=== PATIENT | female | born 1955 | race Caucasian/White ===

== ENCOUNTER 2022-07-17 06:58 | Observation (INO) ==
--- NOTE | 2022-06-28 11:21 | PAT Medication Instructions ---
Medication Instructions Date of Service June 28, 2022 Home Medications apple cider vinegar 500 mg tablet 500 mg PO QAM ascorbic acid (vitamin C) 500 mg tablet (Vitamin C) 500 mg PO QAM baclofen 10 mg tablet 5 mg PO BID PRN Pain calcium carbonate 600 mg-vitamin D3 5 mcg (200 unit) tablet 1 tab PO QAM cholecalciferol (vitamin D3) 50 mcg (2,000 unit) capsule (Vitamin D3) 50 mcg PO QAM d-mannose 500 mg capsule 500 mg PO BID ferrous sulfate 325 mg (65 mg iron) tablet (iron) 325 mg PO QAM ibuprofen 200 mg tablet (Advil) 400 mg PO Q6H PRN Pain magnesium oxide 420 mg tablet 420 mg PO QAM multivitamin 1 tab PO QAM turmeric 400 mg capsule 500 mg PO QAM ASK your surgeon for instructions ibuprofen 200 mg tablet (Advil) 400 mg PO Q6H PRN Pain STOP taking 2 weeks before surgery (or as soon as possible if surgery is within 2 weeks) apple cider vinegar 500 mg tablet 500 mg PO QAM d-mannose 500 mg capsule 500 mg PO BID turmeric 400 mg capsule 500 mg PO QAM DO NOT take the morning of surgery ascorbic acid (vitamin C) 500 mg tablet (Vitamin C) 500 mg PO QAM baclofen 10 mg tablet 5 mg PO BID PRN Pain calcium carbonate 600 mg-vitamin D3 5 mcg (200 unit) tablet 1 tab PO QAM cholecalciferol (vitamin D3) 50 mcg (2,000 unit) capsule (Vitamin D3) 50 mcg PO QAM ferrous sulfate 325 mg (65 mg iron) tablet (iron) 325 mg PO QAM magnesium oxide 420 mg tablet 420 mg PO QAM multivitamin 1 tab PO QAM Take evening before surgery baclofen 10 mg tablet 5 mg PO BID PRN Pain (if needed) Other Notes If you have any questions please call us at [phone] or [phone] or [phone] or [phone]
--- NOTE | 2022-07-02 09:13 | History & Physical Report ---
Date of Service July 02, 2022 date of surgery: 07/17/22 Procedure: Right Total Knee Arthroplasty Surgeon: Guy Sharma Assessment & Plan (1) Arthritis of right knee: Plan: Risks and benefits of procedure discussed in detail today, patient would like to proceed with a right total knee replacement at [facility] as scheduled. will obtain medical clearance from Dr Oropeza prior to surgery as well as obtain PATs at [facility]. Will place on ASA 81mg po bid x 1 month post op, f/u 2 weeks post op for routine post-operative care and x-ray, sooner if having any problems. will make arrangements for HHPT at the time of discharge. At this point in time, has failed conservative measures and would like to proceed with surgical intervention. The risks and benefits have been discussed including, but not limited to, risk of infection, nerve injury, stiffness, loss of motion, failure to improve, etc. Reasonable outcomes and options of treatment were discussed. An explanation of appropriate alternatives to the procedure that may be advantageous were discussed and their risks and benefits, as well as the risks and benefits of not proceeding with treatment. I offered to answer any additional inquiries concerning the treatment involved. All the patient's questions were answered. The patient is agreeable, understanding of the treatment plan and alternatives, and wishes to proceed with the treatment plan. History of Present Illness Chief Complaint: Right knee pain Primary Care Provider: Jaclyn Oropeza Maricruz presents today for preop evaluation prior to right total knee replacement scheduled for July 17. She has complaints of pain decreased range of motion and intermittent swelling. Rates her current pain as a 6 out of 10. She is tried and failed prior viscosupplementation as well as corticosteroid injections including Zilretta without relief. She is tried oral anti-inflamm atories and Tylenol at this point time is failed conservative measures like to proceed with a right total knee replacement Allergies Allergy/AdvReac Type Severity Reaction Status Date / Time Penicillins Allergy Intermediate Hives Verified 06/28/22 09:45 Fish Containing Products Allergy Mild Rash Verified 06/28/22 09:46 lactase [From Dairy Aid] Allergy Mild Rash Verified 06/28/22 09:46 Home Medications Medication Instructions Recorded Confirmed Type apple cider vinegar 500 mg tablet 500 mg PO QAM 06/28/22 06/28/22 History ascorbic acid (vitamin C) 500 mg 500 mg PO QAM 06/28/22 06/28/22 History tablet (Vitamin C) baclofen 10 mg tablet 5 mg PO BID PRN Pain 06/28/22 06/28/22 History calcium carbonate 600 mg-vitamin 1 tab PO QAM 06/28/22 06/28/22 History D3 5 mcg (200 unit) tablet cholecalciferol (vitamin D3) 50 50 mcg PO QAM 06/28/22 06/28/22 History mcg (2,000 unit) capsule (Vitamin D3) d-mannose 500 mg capsule 500 mg PO BID 06/28/22 06/28/22 History ferrous sulfate 325 mg (65 mg 325 mg PO QAM 06/28/22 06/28/22 History iron) tablet (iron) ibuprofen 200 mg tablet (Advil) 400 mg PO Q6H PRN Pain 06/28/22 06/28/22 History magnesium oxide 420 mg tablet 420 mg PO QAM 06/28/22 06/28/22 History multivitamin 1 tab PO QAM 06/28/22 06/28/22 History turmeric 400 mg capsule 500 mg PO QAM 06/28/22 06/28/22 History Past Med/Surg History Medical History Eczema Elevated BP without diagnosis of hypertension RECENT ISSUE>MONITORING BP AT HOME> RECENTLY IN 130-140S SYSTOLICALLY Elevated cholesterol Diet controlled GERD (gastroesophageal reflux disease) Well controlled and stable Iron deficiency anemia Ocular migraine Osteoarthritis Schatzki's ring STRETCHING IN PAST- NO CURRENT ISSUES Scoliosis Urinary retention SELF CATH TID>VOIDS "VERY LITTLE"> PRESUMED NEUROGENIC BLADDER UTI (urinary tract infection) ON MACROBID - STARTED 06/29/22- STILL HAVE MILD SYMPTOMS Surgical History Fusion of spine LUMBAR SPINE H/O wrist surgery RT>NO HARDWARE History of arthroscopy LEFT KNEE History of bladder surgery URETERS REPAIRED AND BENIGN OVARIAN TUMOR REMOVED (OPEN PROCEDURE)>AT AGE 14 History of carpal tunnel release RT/LEFT History of section X 2 History of cholecystectomy History of colonoscopy History of cystoscopy MULTIPLE X'S History of esophagogastroduodenoscopy (EGD) History of tooth extraction Social History Smoking Status: Never smoker Second Hand Exposure: Yes ( A CHILD); Hx Alcohol Use: Yes Preferred Language: Omani [employer] C[employer] Hel[employer] Required: No Beliefs That Will Affect Care: None Current Living Situation: Alone Feels Safe at Home: Yes Assistive Devices: Glasses Review of Systems Review of Systems: All systems reviewed & are unremarkable except as noted in HPI & below Constitutional: no fever, no chills and no sweats Respiratory: no cough and no dyspnea Cardiovascular: no chest pain, no dyspnea and no orthopnea Gastrointestinal: no abdominal pain, no nausea and no vomiting Musculoskeletal: as per Subjective / HPI Physical Exam Physical Exam: HT: 5ft 2in WT: 81.6kg Constitutional: WD/WN, vitals as above no acute distress Respiratory: normal respiratory effort, lungs clear to auscultation no respiratory distress, no labored breathing and does not use accessory muscles Cardiovascular: RRR, no murmur, no edema Gastrointestinal (Abdomen): normal bowel sounds, soft, nontender, no hepatosplenomegaly Musculoskeletal: Knee: + knee abnormal to inspection (RIGHT KNEE: ), + effusion (+1 effusion), + limited ROM of knee (ROM 0/3/110), + knee ROM with crepitation, + joint line tenderness (medial joint line) and + Glenna's sign positive; no deformity, no skin erythema, no ecchymosis, no valgus laxity, no varus laxity, anterior drawer test negative, Trisha's sign negative and pivot shift test negative Results & Data Results & Data ([facility]) Diagnostic Findings Right Knee X-ray: Right knee series showing advanced degenerative changes to the right knee, narrowing of the medial compartment and patello-femoral joint with patellar spurring noted, findings showing joint space narrowing of the medial compartment and patello-femoral joint, osteophyte formation and subchondral sclerosis noted. overall varus alignment. no acute bony pathology noted.
--- NOTE | 2022-07-02 10:21 | Anesthesiology Consultation ---
Date of Service July 02, 2022 Assessment & Plan (1) Encounter for pre-operative examination: Chart Review Chart Review: Acceptable Risk for Surgery (pending PCP clearance, response to abnormal CXR and cardio clearance (07/11/22)) and Patient seen in Pre Admission Testing -Awaiting PCP clearance (seen already)- please send optimization form re: preop CXR (along with other preop testing)- will need a response - Awaiting cardio clearance 07/11/22 -Pt is not an ideal Outpatient Joint candidate Per PAT appt on 07/02/22, patient denies any recent travel or large group activities. Pt is vaccinated for Covid. Will leave to surgeon's discretion if preop Covid testing needed. Educated on importance of using Covid precautions one week prior to surgery Teaching & Discussion Pre-Anesthesia Teaching/Discussion Notes: Instructed NPO after midnight before surgery,except medications with 15 cc of water. Medication instructions provided according to the PAT guidelines. History Surgery Operation Date: 07/17/22 07:15 Proposed Procedures p Right Total Knee Arthroplasty - Guy Sharma DO Height/Weight Height: 5 ft 2 in Weight: 82.4 kg Allergies Allergy/AdvReac Type Severity Reaction Status Date / Time Penicillins Allergy Intermediate Hives Verified 06/28/22 09:45 Fish Containing Products Allergy Mild Rash Verified 06/28/22 09:46 lactase [From Dairy Aid] Allergy Mild Rash Verified 06/28/22 09:46 Medications Home Medications Medication Instructions Recorded Confirmed Last Taken apple cider vinegar 500 mg tablet 500 mg PO QAM 06/28/22 06/28/22 Unknown ascorbic acid (vitamin C) 500 mg 500 mg PO QAM 06/28/22 06/28/22 Unknown tablet (Vitamin C) baclofen 10 mg tablet 5 mg PO BID PRN Pain 06/28/22 06/28/22 Unknown calcium carbonate 600 mg-vitamin 1 tab PO QAM 06/28/22 06/28/22 Unknown D3 5 mcg (200 unit) tablet cholecalciferol (vitamin D3) 50 50 mcg PO QAM 06/28/22 06/28/22 Unknown mcg (2,000 unit) capsule (Vitamin D3) d-mannose 500 mg capsule 500 mg PO BID 06/28/22 06/28/22 Unknown ferrous sulfate 325 mg (65 mg 325 mg PO QAM 06/28/22 06/28/22 Unknown iron) tablet (iron) ibuprofen 200 mg tablet (Advil) 400 mg PO Q6H PRN Pain 06/28/22 06/28/22 Unknown magnesium oxide 420 mg tablet 420 mg PO QAM 06/28/22 06/28/22 Unknown multivitamin 1 tab PO QAM 06/28/22 06/28/22 Unknown turmeric 400 mg capsule 500 mg PO QAM 06/28/22 06/28/22 Unknown Past Medical History Medical History (Updated 07/03/22 @ 08:59 by Cherry Chopra PA-C) Eczema Elevated BP without diagnosis of hypertension RECENT ISSUE>MONITORING BP AT HOME> RECENTLY IN 130-140S SYSTOLICALLY Elevated cholesterol Diet controlled GERD (gastroesophageal reflux disease) Well controlled and stable Iron deficiency anemia Ocular migraine Osteoarthritis Prediabetes Presumed- Hgb A1C 07/02/22- was 5.9 Schatzki's ring STRETCHING IN PAST- RARE ISSUES- USUALLY WITH BEEF Scoliosis Urinary retention SELF CATH TID>VOIDS "VERY LITTLE"> PRESUMED NEUROGENIC BLADDER UTI (urinary tract infection) ON MACROBID - STARTED 06/29/22- STILL HAS MILD SYMPTOMS - FOLLOWING WITH UROLOGY AND PCP Exercise / Class Metabolic Activity III < 4 Walking/Shop/Light housework (one flight of stairs - no chest pain, mild SOB ) Past Surgical History Surgical History Fusion of spine LUMBAR SPINE H/O wrist surgery RT>NO HARDWARE History of arthroscopy LEFT KNEE History of bladder surgery URETERS REPAIRED AND BENIGN OVARIAN TUMOR REMOVED (OPEN PROCEDURE)>AT AGE 14 History of carpal tunnel release RT/LEFT History of section X 2 History of cholecystectomy History of colonoscopy History of cystoscopy MULTIPLE X'S History of esophagogastroduodenoscopy (EGD) History of tooth extraction Past Anesthesia History No Hx of Anesthesia Complications and No Family Hx of Anesthesia Complications History of PONV History of PONV (remote hx of PONV at age 14 years of age - no subsequent issues ) and Hx of Motion Sickness (minimal ) Social History Smoking Status: Never smoker Hx Alcohol Use: Yes alcohol intake frequency: holidays/special occasions only substance use type: does not use Review of Systems Hx of snoring- hx of sleep study- positional apnea- did not recommend device Hx of blood transfusion s/p lumbar surgery Patient denies chest pain, shortness of breath at rest, cough, wheezing, palpitations. No hx of seizures, stroke, DC. No hx of blood clots Physical Exam Vital Signs VITALS BP 144/77 P 71 TEMP 97.4 SP02 97% RESP 16 Constitutional no acute distress ENMT Mouth: no TMJ clicking Thyromental Distance: > or= 3.5 Finger Breadths (3.5) Mallampati Class: III Caps to side teeth and molars Permanent implants to molars Neck neck extension not limited Respiratory normal respiratory effort; no respiratory distress Auscultation: lungs clear to auscultation bilaterally; no wheezes Cardiovascular Rate/Rhythm: regular rate and regular rhythm Heart Sounds: no murmur Vessels: no carotid bruit Musculoskeletal Spine: no pain with cervical ROM Extremities: extremities normal to inspection Psychiatric Orientation: alert Lab Results Anesthesia Preop Results Results Anesthesia Widget: WBC 6.88 K/ul (4.8-10.8) 07/02/22 Hgb 12.2 g/dl (12.0-16.0) 07/02/22 Hct 38.1 % (37.0-47.0) 07/02/22 Plt 298 K/uL (130-400) 07/02/22 Na 139 mmol/L (136-145) 07/02/22 K 3.8 mmol/L (3.5-5.1) 07/02/22 Cl 106 mmol/L (98-107) 07/02/22 CO2 28 mmol/L (21-32) 07/02/22 BUN 16 mg/dl (6-23) 07/02/22 Creat 0.80 mg/dl (0.6-1.2) 07/02/22 Glucose Level 100 mg/dl (70-99(Fasting)) H 07/02/22 PT 10.6 Seconds (9.0-12.0) 07/02/22 PTT 24.7 Seconds (21.0-31.0) 07/02/22 INR 1.0 (0.9-1.1) 07/02/22 HA1c 5.9 % (4.5-5.6) H 07/02/22 Urine Color Yellow 07/02/22 Urine Appearance Clear (Clear) 07/02/22 Urine pH 5.5 (4.5-7.5) 07/02/22 Urine Specific [place] 1.014 (1.000-1.030) 07/02/22 Urine Protein Negative (Negative) 07/02/22 Urine Glucose (UA) Negative (Negative) 07/02/22 Urine Ketones Negative (Negative) 07/02/22 Urine Blood Negative (Negative) 07/02/22 Urine Nitrite Positive (Negative) A 07/02/22 Urine Bilirubin Negative (Negative) 07/02/22 Urine Urobilinogen Negative (Negative) 07/02/22 Urine Leukocyte Esterase Trace (Negative) H 07/02/22 Urine WBC (Auto) 1-5 /hpf (0-5) 07/02/22 Urine RBC (Auto) 0-4 /hpf (0-4) 07/02/22 Urine Hyaline Casts (Auto) 1-5 /lpf (0-5) 07/02/22 Urine Epithelial Cells (Auto) >30 /lpf (0-5) H 07/02/22 Urine Bacteria (Auto) Negative (Negative) 07/02/22 Blood Type AB Positive 07/02/22 Antibody Screen NEGATIVE 07/02/22 Testing Electrocardiogram Date: 07/02/22 Findings: + NSR @ (71bpm ) Normal EKG per cardio. Chest X-Ray Date: 07/02/22 FINDINGS: No pneumothorax. There is a trace right pleural effusion. There is a moderate hiatus hernia. The heart is mildly enlarged. There is mild central pulmonary vascular congestion without overt edema. Prior cholecystectomy. Bibasilar linear densities are noted. IMPRESSION: 1. Cardiomegaly with mild pulmonary vascular congestion and a trace right pleural effusion. 2. Bibasilar densities are nonspecific but may represent atelectasis. A pneumonia could also have a similar appearance in the appropriate clinical setting. 3. Moderate hiatus hernia. Stress Test Date: 12/11/18 Type: exercise Unable to progress beyond Harvey Stage 1 due to early elevation in heart rate and dyspnea. Only minor ST depression noted in inferior leads that is likely rate related. Poor to fair exercise tolerance. MPHR 120%. 4.64 METS achieved. COVID-19 Risk Screen Screening Information COVID-19 Screen Date: 07/02/22 Exposure 21 Days Family/Household +COVID Last 21 Days: No Exposure 10 Days Any COVID Exposure Last 10 Days: No Symptoms Last 10 Days Experienced COVID Sx Last 10 Days: No + COVID 0-90 Days COVID + in Last 0-90 Days: No Risk Plan COVID Risk Plan: No Risk Identified Patient Education COVID Preop Screening Education Complete: Yes
[~2022-07-17 06:58] MED LIST: ACETAMINOPHEN 500 MG TAB PO SCH; ALLERGY Noted to ORDERED Medication SCH; BUPIVACAINE 0.5 % 5 MG/1 ML PF 10ML VIAL ONE; CeleBREX 200 MG CAP PO SCH; FAMOTIDINE 20 MG TAB PO SCH; GABAPENTIN 300 MG CAP PO SCH; LR 500ML BOLUS, THEN 15ML/HR IV SCH; METOCLOPRAMIDE HCL 10 MG TABLET PO SCH; ROPIVACAINE 0.5% 5 MG/ML 30 ML VIAL ONE; ROPIVACAINE 0.5% HCL/PF 150 MG, BUPIVACAINE 0.75% MPF 20 ML, EPINEPHrine 30MG/30ML (OR ... INFIL SCH; TRANEXAMIC ACID 1,000 MG **IV Intra-op IV SCH; TRANEXAMIC ACID 1,000 MG **IV Pre-op IV SCH; dexAMETHasone 4 MG TAB PO SCH
[2022-07-17] MEDS ORDERED: fentaNYL citrate PF 100 MCG/2 ML VIAL ONE (07:00)
[2022-07-17] MEDS ORDERED: PROPOFOL IV EMULSION 10 MG/ML 20 ML VIAL IV ONE ×3 (07:00→11:56)
[2022-07-17] MEDS ORDERED: MIDAZOLAM HCL 1 MG/ML 2ML VIAL ONE (07:00)
[2022-07-17] MEDS ORDERED: ONDANSETRON INJ 2 MG/ML 2 ML VIAL ONE (07:00)
--- NOTE | 2022-07-17 07:30 | History & Physical Bridge Note ---
Date of Service July 17, 2022 History & Physical Bridge Note I have examined the patient, reviewed the History & Physical and in the interval since the performance of the History & Physical I have noted the following changes of clinical significance: no changes noted
[2022-07-17] MEDS ORDERED: ONDANSETRON INJ 2 MG/ML 2 ML VIAL IV PRN ×2 (09:22→13:42)
[2022-07-17] MEDS ORDERED: ATROPINE SULFATE 0.1 MG/ML 10ML SYR IV PRN (09:22)
[2022-07-17] MEDS ORDERED: ePHEDrine sulfate 50 MG/ML AMP IV PRN (09:22)
[2022-07-17] MEDS ORDERED: fentaNYL citrate PF 100 MCG/2 ML VIAL IV PRN (09:22)
[2022-07-17] MEDS ORDERED: HYDROmorphone INJ 2 MG/ML SYR/VIAL IV PRN (09:22)
[2022-07-17] MEDS ORDERED: ORTHO JOINT ANESTHETIC ONE (09:24)
[2022-07-17] MEDS ORDERED: ceFAZolin 2000MG 2,000 MG/15 ML SYR IV ONE (10:44)
--- NOTE | 2022-07-17 11:50 | Operative Report ---
Post Operative Report Pre & Post Diagnosis Operation Date: 07/17/22 09:35 Pre-Op Diagnosis: Right Knee Osteoarthritis Post-Op Diagnosis: Right Knee Osteoarthritis I identified the patient and participated in the time-out.: Yes Procedure Operation Date: 07/17/22 09:35 Actual Procedures p Right Total Knee Arthroplasty(Right utilizing [employer] journey 2 patient matched total knee arthroplasty size femur 3 tibia 2 poly 13 mm patella 26 round) - Guy Sharma DO Surgeon Guy Sharma DO Habilitative Interventionist THUY Kim Estimated Blood Loss 5 Findings Consistent with Post-Op Diagnosis Patient presents with severe end-stage tricompartmental degenerative joint disease right knee varus [id number] marginal osteophyte subchondral sclerosis with moderate to large effusion Specimens Bone card Drains Medium bore Hemovac Anesthesia Type MAC Spinal Regional Complications none Disposition Accompanied Patient To Recovery: No Disposition: Recovery Room Indications Patient presents with severe end-stage DJD right knee failed attempted conservative management including physical therapy anti-inflammatories relative rest activity modification corticosteroid injection viscosupplementation the above intraoperative findings were noted Description of Procedure After proper prepping and draping of the Right lower extremity anterior midline incision was made over the region of the extensor extensor mechanism after meticulous hemostasis was obtained and maintained in subcutaneous tissues a medial parapatellar incision was made The patella was subluxed lateralward the medial lateral gutter were cleaned from any hypertrophic synovitis and scar tissue of the distal femoral block was placed and the distal femoral osteotomy cut was made subsequently the chamfers anterior and posterior osteotomy cuts were made utilizing the 4-in-1 block the tibia was subsequently subluxed anteriorward medial and ateral meniscal remnants were excised in their entirety remnants of the anterior and posterior cruciate ligaments were excised in their entirety excellent exposure of the proximal tibia was obtained the tibial osteotomy guide was placed on the proximal tibial osteotomy cut was made once again the knee was irrigated with copious amounts of sterile saline solution the patella was subsequently everted lateralward thickened scar tissue around the patella was removed the patella was subsequently cut utilizing a freehand technique and was drilled prepared for final preparation and placement of patella socially flexion-extension gaps were checked and the equal and symmetric trials were placed to the appropriate femoral and tibial trials with poly-spacer being placed for equal flexion and extension gaps and full range of motion including extension to 0 and flexion to 140 the trial components after having been taken to recovery range of motion was subsequently removed meticulous hem ostasis was obtained and maintained subsequently a knee block injection of joint cocktail including ropivacaine 0.5% 150 mg. Bupivacaine 0.5% epinephrine 1- 200,030 mL's toradol 30 mg dexamethasone 4 mg ketamine 10 mg clonidine 100 micrograms normal saline solution 30 mg was infiltrated into the soft tissues of the posterior knee medial lateral gutters and periosteal synovium special attention was paid to protect neurovascular structures at all times subsequently trial components having been removed the knee was irrigated with sterile saline solution. debris was removed the proximal tibia was subsequently prepared and was made ready for the placement of the tibial component tibial component was also cemented and tamped into position the femoral component was subsequently placed and cemented in the position the patellar component was subsequently cemented in position because hemostasis once again obtained and maintained wound having been thoroughly irrigated with debridement and debridement lavage was performed as well as a medial parapatellar incision closed with #1 Vicryl in interrupted fashion subcutaneous was closed with #2 Vicryl skin was closed with skin clips. PA-C was necessary for prepping and drapping as well as wound closure of deep fascia Sub cutaneous tissue and skin and was necessary for the case. A sterile compressive dressing was placed patient was taken to recovery in stable condition of report dictated by Zachary I attest to the content of the Intraoperative Record and any orders documented therein. Any exceptions are noted below.Due to the complex nature of the procedure, the entire surgery was performed with the operational assistance of THUY Kim. The call center assistant, under direct supervision, was involved in the actual performance of all aspects of the surgical procedure including hemostasis, tissue retraction and incision, instrument management, patient positioning, and wound closure. I attest to the content of the Intraoperative Record and any orders documented therein. Any exceptions are noted below.
--- NOTE | 2022-07-17 12:52 | XRay Report ---
TWO VIEWS RIGHT KNEE CLINICAL HISTORY: Postoperative examination. FINDINGS: AP and crosstable lateral portable views of the right knee are obtained. A right knee arthr oplasty is in near anatomic alignment. There has been undersurface remodeling of the patella. No acut e fracture is seen. There are expected postoperative changes around the knee including a surgical alan in, soft tissue edema, and subcutaneous gas. IMPRESSION: Expected postoperative change status post right knee arthroplasty. No acute fracture is s een. ACT 112: Negative or not required by law. Electronically signed by: Christopher Quesada M.D. 07/17/2022 12:51 PM
[2022-07-17] MEDS ORDERED: MAGNESIUM HYDROXIDE SUSP 30 ML UDC PO PRN (13:42)
[2022-07-17] MEDS ORDERED: oxyCODONE HCL IR 5 MG TAB (IMMEDIATE RELEASE) PO PRN (13:42)
[2022-07-17] MEDS ORDERED: bisacodyL 10 MG SUPP PR PRN (13:42)
[2022-07-17] MEDS ORDERED: BACLOFEN 10 MG TAB PO PRN (13:42)
[2022-07-17] MEDS ORDERED: METOCLOPRAMIDE HCL INJ 5 MG/ML 2 ML VIAL IV PRN (13:42)
[2022-07-17] MEDS ORDERED: diphenhydrAMINE Capsule 25 MG CAP PO PRN (13:42)
[2022-07-17] MEDS ORDERED: NALOXONE HCL 0.4 MG/1 ML VIAL/CARP IV PRN (13:42)
[2022-07-17] MEDS ORDERED: HYDROmorphone INJ 1 MG/ML SYRINGE IV PRN (13:42)
--- NOTE | 2022-07-17 14:03 | Anesthesiology Progress Note ---
Date of Service July 17, 2022 Anesthesia Post Procedure Vital Signs Vital Signs: Temp Pulse Pulse Resp BP Pulse Ox O2 Del Method 07/17/22 14:01 36.9 C 76 16 111/68 96 Room Air 07/17/22 13:42 36.8 C 74 16 98/66 L 94 Room Air 07/17/22 12:50 36.7 C 80 14 111/70 96 Room Air 07/17/22 12:40 36.9 C 79 13 95/55 L 98 Room Air 07/17/22 12:30 36.9 C 87 19 110/68 99 Oxymask 07/17/22 12:22 36.9 C 89 17 107/67 99 Oxymask 07/17/22 07:22 36.5 C 86 18 148/82 H 97 Room Air O2 Flow Rate 07/17/22 14:01 07/17/22 13:42 07/17/22 12:50 07/17/22 12:40 07/17/22 12:30 6 07/17/22 12:22 6 07/17/22 07:22 Transfer of Care Handoff Completed per policy Notes Mental Status: alert / awake / arousable and participated in evaluation Patient Amnestic to Procedure: Yes Nausea / Vomiting: adequately controlled Pain: adequately controlled Airway Patency, RR, SpO2: stable & adequate BP & HR: stable & adequate Hydration State: stable & adequate Neuraxial Anesthesia: was administered and sensory block is resolving Anesthetic Complications: no major complications apparent and Pt Satisfied with anesthetic care
[2022-07-17] MEDS: CLINDAMYCIN/D5W 600 MG/50 ML BAG IV SCH (18:22)
[2022-07-17] MEDS: SODIUM CHLORIDE 0.9% 1000ML 1,000 ML IV SCH (18:23)
[2022-07-17] MEDS: ACETAMINOPHEN 500 MG TAB PO SCH (18:23)
[2022-07-17] MEDS: KETOROLAC TROMETHAMINE 15 MG/ML VIAL IV SCH (18:23)
[2022-07-17] MEDS ORDERED: SENNA 8.6 MG TAB PO SCH (21:00)
[2022-07-17] MEDS: ASPIRIN 81 MG ECTAB PO SCH (21:30)
[2022-07-17] MEDS: DOCUSATE SODIUM 100 MG CAP PO SCH (21:31)
[2022-07-18] MEDS: KETOROLAC TROMETHAMINE 15 MG/ML VIAL IV SCH ×3 (00:26→12:28)
[2022-07-18] MEDS: ACETAMINOPHEN 500 MG TAB PO SCH ×2 (00:27→07:40)
[2022-07-18] MEDS: CLINDAMYCIN/D5W 600 MG/50 ML BAG IV SCH (01:54)
[2022-07-18] MEDS: SODIUM CHLORIDE 0.9% 1000ML 1,000 ML IV SCH (04:11)
[2022-07-18 08:11] LABS: Hematocrit (blood only) 34.1 % (37.0-47.0); Hemoglobin 10.8 g/dl (12.0-16.0); Mean Corpuscular Hemoglobin 26.6 pg (25.0-34.0); Mean Corpuscular Hgb Conc 31.7 g/dL (32.0-36.0); Mean Platelet Volume 11.1 fL (9.4-12.4); Platelet Count 278 K/uL (130-400); RDW Coefficient of Variation 15.5 % (11.5-14.5); RDW Standard Deviation 47.8 fL (36.4-46.3); Red Blood Count 4.06 M/uL (4.20-5.40); White Blood Count 12.03 K/ul (4.8-10.8)
[2022-07-18 08:25] VITALS: BP 130/71; TEMP 97.7; O2SAT 100
[2022-07-18 08:29] LABS: Calcium 8.7 mg/dl (8.5-10.1); Est GFR (African American) 99.5 ml/min; Est GFR (Non-African American) 85.8 ml/min; Potassium 4.2 mmol/L (3.5-5.1)
[2022-07-18] MEDS: ASPIRIN 81 MG ECTAB PO SCH (08:36)
[2022-07-18] MEDS: DOCUSATE SODIUM 100 MG CAP PO SCH (08:36)
[2022-07-18] MEDS ORDERED: MULTIVITAMIN TAB PO SCH (09:00)
[2022-07-18] MEDS ORDERED: CALCIUM 600MG + VIT D 400 IU TAB PO SCH (09:00)
[2022-07-18] MEDS ORDERED: MAGNESIUM OXIDE 400 MG TAB PO SCH (09:00)
[2022-07-18] MEDS ORDERED: CHOLECALCIFEROL 1,000 UNITS 25 MCG TAB PO SCH (09:00)
[2022-07-18] MEDS ORDERED: FERROUS SULFATE 325 MG TAB PO SCH (09:00)
[2022-07-18] MEDS ORDERED: ASCORBIC ACID 500 MG TAB PO SCH (09:00)
--- NOTE | 2022-07-18 10:38 | Orthopedic Progress Note ---
Date of Service July 18, 2022 Assessment & Plan (1) History of total right knee replacement (TKR): Plan: Pt is POD #1 s/p Right TKA -PT/OT -Pain regime as written -DVT ppx with TEDS/SCDS/ASA BID -Pt to have drain removed prior to d/c and she is stable from an orthopedic standpoint for discharge today. Admission and Anticipated Discharge Date Admission Date: July 17, 2022 Subjective Pt is POD #1 s/p Right TKA -Pt doing well this morning, has no acute complaints -States she is having minimal pain but pain is controlled with medications -Denies CP, SOB, abdominal pain, fevers or chills Review of Systems Review of Systems: All systems reviewed & are unremarkable except as noted in Subjective Physical Exam Physical Exam: RLE with dressing and drain in place, area is c/d/i, drain with minimal output appreciated. Calf is soft and nontender with negative Loretta sign. Able to wiggle toes without issue, good ROM of R ankle, distal perfusion and sensation grossly intact. Results & Data Vital Signs (Past 12 Hours) Vital Signs Temp Pulse Pulse Resp BP Pulse Ox O2 Del Method 07/18/22 08:24 36.5 C 57 L 18 130/71 100 Room Air 07/18/22 04:00 36.6 C 58 L 16 125/79 97 Room Air 07/18/22 00:19 36.5 C 69 18 110/65 97 Room Air Laboratory Results Laboratory Results WBC 12.03 K/ul (4.8-10.8) H 07/18/22 07:40 RBC 4.06 M/uL (4.20-5.40) L 07/18/22 07:40 Hgb 10.8 g/dl (12.0-16.0) L 07/18/22 07:40 Hct 34.1 % (37.0-47.0) L 07/18/22 07:40 MCV 84.0 fL (80.0-100.0) 07/18/22 07:40 MCH 26.6 pg (25.0-34.0) 07/18/22 07:40 MCHC 31.7 g/dL (32.0-36.0) L 07/18/22 07:40 RDW Std Deviation 47.8 fL (36.4-46.3) H 07/18/22 07:40 RDW Coeff of Mauricio 15.5 % (11.5-14.5) H 07/18/22 07:40 Plt Count 278 K/uL (130-400) 07/18/22 07:40 MPV 11.1 fL (9.4-12.4) 07/18/22 07:40 Sodium 139 mmol/L (136-145) 07/18/22 07:40 Potassium 4.2 mmol/L (3.5-5.1) 07/18/22 07:40 Chloride 109 mmol/L (98-107) H 07/18/22 07:40 Carbon Dioxide 25 mmol/L (21-32) 07/18/22 07:40 Anion Gap 5 (3-11) 07/18/22 07:40 BUN 19 mg/dl (6-23) 07/18/22 07:40 Creatinine 0.73 mg/dl (0.6-1.2) 07/18/22 07:40 Est Cr Clr Drug Dosing 75.0 ml/min 07/18/22 07:40 Est GFR ( Amer) 99.5 ml/min 07/18/22 07:40 Est GFR (Non-Af Amer) 85.8 ml/min 07/18/22 07:40 BUN/Creatinine Ratio 26.0 (10-20) H 07/18/22 07:40 Glucose 126 mg/dl (70-99(Fasting)) H 07/18/22 07:40 POC Glucose 137 mg/dl (70-99) H 07/17/22 07:20 Calcium 8.7 mg/dl (8.5-10.1) 07/18/22 07:40 SARS-CoV-2, RNA, NAAT NEGATIVE (NEGATIVE) 07/17/22 Unknown Impressions Knee X-Ray 07/17/22 12:25 TWO VIEWS RIGHT KNEE CLINICAL HISTORY: Postoperative examination. FINDINGS: AP and crosstable lateral portable views of the right knee are obtained. A right knee arthroplasty is in near anatomic alignment. There has been undersurface remodeling of the patella. No acute fracture is seen. There are expected postoperative changes around the knee including a surgical drain, soft tissue edema, and subcutaneous gas. IMPRESSION: Expected postoperative change status post right knee arthroplasty. No acute fracture is seen. ACT 112: Negative or not required by law. Electronically signed by: Christopher Quesada M.D. 07/17/2022 12:51 PM
[2022-07-18 12:54] VITALS: PULSE 69
[2022-07-18] MEDS ORDERED: CeleBREX 200 MG CAP PO SCH (21:00)
--- NOTE | 2022-07-19 07:53 | Discharge Summary ---
Date of Service date of discharge: July 18, 2022 date of admission: 07/17/22 Admission HPI Per Admitting Provider Maricruz presents today for preop evaluation prior to right total knee replacement scheduled for July 17. She has complaints of pain decreased range of motion and intermittent swelling. Rates her current pain as a 6 out of 10. She is tried and failed prior viscosupplementation as well as corticosteroid injections including Zilretta without relief. She is tried oral anti- inflammatories and Tylenol at this point time is failed conservative measures like to proceed with a right total knee replacement Principal Diagnosis right knee arthritis Discharge Exam Musculoskeletal right knee: NVDI, calf SNT, negative chanda sign. DP palpable, able to wiggle toes/ankle movement without difficulty. CE dressing clean dry and intact. expected post-operative bruising noted. Discharge Data Allergies Allergy/AdvReac Type Severity Reaction Status Date / Time Penicillins Allergy Intermediate Hives Verified 07/17/22 07:17 Fish Containing Products Allergy Mild Rash Verified 07/17/22 07:17 lactase [From Dairy Aid] Allergy Mild Rash Verified 07/17/22 07:17 Procedures Performed Operation Date: 07/17/22 09:35 Actual Procedures p Right Total Knee Arthroplasty(Right) - Guy Sharma DO Ordered Studies 07/17/22 05:00 US - OR guided needle placemen Routine Hospital Course (1) History of total right knee replacement (TKR): Pt is POD #1 s/p Right TKA -PT/OT -Pain regime as written -DVT ppx with TEDS/SCDS/ASA BID -Pt to have drain removed prior to d/c and she is stable from an orthopedic standpoint for discharge today. Total Time Total Time Spent Total Time Spent (In Minutes): 20 Discharge Plan Discharge Items Patient Disposition: Home - Home Health Services Reason For Visit: Right Knee Osteoarthritis Discharge Diagnosis: right total knee replacement Activity: Per Instructions section Weightbearing: Right weightbearing Weightbearing Comment: WBAT with walker Non-emergency contact: Surgeon Call non-emergency contact if: you have any medication questions, your temperature is above 101, your wound has increased redness, your wound has increased drainage and your wound pain has increased Follow-up/Referrals: Jaclyn Oropeza DO [Primary Care Provider] - Diet: Regular Addtl Attending Provider Instructions: ACTIVITY RECOMMENDATIONS: SELF CARE INSTRUCTIONS AFTER TOTAL KNEE REPLACEMENT A. You may need to continue a physical therapy program after discharge from the hospital. There are several options available to you. Your doctor will assist you in selecting the best one for you. 1. An out-patient facility 2 to 3 times a week for therapy or home therapy. 2. Continue working on all exercises taught to you in the hospital. Your goals should be to increase bending of your knee to 90 degrees and beyond and to fully straighten your knee. B. You may progress at your own pace from walking with a walker or crutches to a cane; then to no assistive devices. C. Make walking a part of your daily routine. Be up as much as comfortable with rest periods throughout the day. Rest with leg elevation is very important. Use the ice wrap frequently for the first 3-4 weeks. D. There are no restrictions on activities. You may ride in a car, shop, participate in teacher's assistant and all social activities. E. Wear the long elastic stockings (MARTHA hose) 20 hours a day for 2 weeks after surgery. They can be removed several times a day for laundering and for a bath. F. You may shower, no tub baths until cleared by your doctor. SPECIAL CARE INSTRUCTIONS: VERY IMPORTANT TO READ AND REVIEW A. There are a few signs you need to watch for after you are home. Call [facility] if you notice any of the followin. Increased severe knee pain. Some pain is expected especially when you exercise. 2. Increased swelling in your leg or knee; pain or swelling of the calf muscle in either lower leg. 3. Any fluid drainage from the incision. 4. Shortness of breath or chest pain. B. Please call [facility] at if you have any concerns or questions about your operation or recovery. The doctor or his nurse will return your call promptly. C. You must take antibiotics before dental work, bladder, bowel or other surgery. Your doctor will provide you with a permanent care to carry describing this precaution. IMPORTANT: * REMEMBER TO TAKE ASPIRIN, 81 MG, TWICE DAILY FOR 4 WEEKS UNLESS OTHERWISE DIRECTED. THIS IS YOUR BLOOD THINNER. * HIGH RISK PATIENTS MAY BE PRESCRIBED A STRONGER BLOOD THINNER. THIS WILL BE PROVIDED AT DISCHARGE. * CALL IF INCREASED PAIN, REDNESS, DRAINAGE OR FEVER GREATER THAT 101. * WEAR MARTHA HOSE 20 HOURS PER DAY FOR 2 WEEKS. DRESSING INSTRUCTIONS * CE Dressing- This is a large suction dressing covering your incision. This will help pull any excess drainage from the wound and allow your incision to heal properly. You may shower with this if you can keep the unit outside of the shower. If any bleeding or leakage is noted please call your doctor's office. This will remain on your incision for 7 days and then should be removed. This can be done yourself or by the home nursing staff if applicable. The entire unit is disposable once removed. Once removed, keep incision clean and dry. If redness or drainage is noted, please call your surgeon. ONCE CE IS REMOVED, FOLLOW THESE INSTRUCTIONS: DERMABOND Prineo- This is a mesh tape dressing that is covered with glue. It should remain in place until the incision is properly healed, usually 10-14 days. This dressing is designed to naturally slough off. You may trim the excess mesh tape as it peels off. Incision may be briefly wet in a shower. Dry immediately by blotting with a clean, dry towel. Do not bath or swim until instructed by your doctor. Do not scratch, rub, or pick at the dressing. Do not apply any topical ointments or lotions until dressing is completely removed and/or instructed by your doctor. There may be a small piece of suture material at one end of your incision. Do not pull or trim this. If it is bothersome or catching on clothing, you may cover it with a band-aid. IF INCISION IS LEAKING THROUGH DRESSING, CALL THE OFFICE . FOLLOW UP VISIT: If appointment is not already scheduled: Please call [facility] to make a follow-up appointment for 2 weeks after your surgery at . Pending Studies at Discharge: No Stand-Alone Forms: My [employer], Smoking Cessation Medications and DC Order Prescriptions: New cefadroxil 500 mg capsule 500 mg PO BID 14 Days Qty: 28 1RF acetaminophen 500 mg capsule 1,000 mg PO Q8H 14 Days Qty: 84 0RF celecoxib [Celebrex] 200 mg capsule 200 mg PO BID PRN (Reason: pain) Qty: 60 0RF aspirin [Ecotrin Low Strength] 81 mg tablet,delayed release (DR/EC) 81 mg PO BID 30 Days Qty: 60 0RF polyethylene glycol 3350 [Miralax] 17 gram powder in packet 17 g PO DAILY PRN (Reason: constipation) Qty: 5 0RF oxycodone 5 mg tablet 5 mg PO Q4H MDD 6 PRN (Reason: pain) Qty: 30 0RF Continued multivitamin Tablet 1 tab PO QAM magnesium oxide 420 mg Tablet 420 mg PO QAM calcium carbonate-vitamin D3 600 mg-5 mcg (200 unit) Tablet 1 tab PO QAM ascorbic acid (vitamin C) [Vitamin C] 500 mg Tablet 500 mg PO QAM baclofen 10 mg Tablet 5 mg PO BID PRN (Reason: Pain) ferrous sulfate [iron] 325 mg (65 mg iron) Tablet 325 mg PO QAM apple cider vinegar 500 mg Tablet 500 mg PO QAM cholecalciferol (vitamin D3) [Vitamin D3] 50 mcg (2,000 unit) Capsule 50 mcg PO QAM turmeric 400 mg Capsule 500 mg PO QAM d-mannose 500 mg Capsule 500 mg PO BID Discontinued ibuprofen [Advil] 200 mg Tablet 400 mg PO Q6H PRN (Reason: Pain) Admission Data Admit Date/Time: 07/17/22 12:25 Attending Provider: Guy Sharma Admit Provider: Guy Sharma Primary Care Provider: Jaclyn Oropeza Other Interventions: Discharge Summary Assessment (RN) Last Done: 07/18/22 12:53
== END 2022-07-18 13:28 | disposition home health service (06) ==
LOC: 3E 06:58 → ASU 06:58